=== PATIENT | female | born 1970 | race African-American/Black ===

== ENCOUNTER 2018-11-11 00:08 | Emergency (ER) | payer MEDICAID ==
[~2018-11-11] VITALS: Ht 160 cm; Wt 78.0 kg
[2018-11-11] MEDS ORDERED: IBUPROFEN 600MG TABLET PO STA (00:35)
[2018-11-11 04:11] VITALS: BP 126/71
== END 2018-11-11 04:13 | disposition home or self-care (01) ==
LOC: ER 00:08
DX: M25.512 Pain in left shoulder (principal); M25.532 Pain in left wrist; M25.552 Pain in left hip; M25.561 Pain in right knee; M79.602 Pain in left arm; Z88.0 Allergy status to penicillin; W01.0XXA Fall on same level from slipping, tripping and stumbling without subsequent striking against object, initial encounter; Y93.89 Activity, other specified; Y92.89 Other specified places as the place of occurrence of the external cause; Y99.8 Other external cause status
CPT/HCPCS: 73030; 73110; 73522; 73562; 81025; 99283